=== PATIENT | male | born 1965 | race Caucasian/White ===

== ENCOUNTER 2016-06-10 15:27 | Observation (INO) | payer MEDICARE, OTHER ==
[~2016-06-10] VITALS: Ht 172.7 cm; Wt 85.4 kg
[2016-06-10] MEDS ORDERED: ONDANSETRON 2MG/ML, 2ML IVPush ONE (16:30)
[2016-06-10] MEDS ORDERED: SODIUM CHLORIDE FLUSH 10ML SYR IVF ONE (16:30)
[2016-06-10] MEDS ORDERED: SODIUM CHLORIDE 0.9% 1,000ML IVBOLUS ONE (16:30)
[2016-06-10 17:30] LABS: HEMOGLOBIN 16.7 g/dL (13.7-18.0)
[2016-06-10 17:39] LABS: ASPARTATE AMINO TRANSFERASE 14 U/L (15-37); BLOOD UREA NITROGEN 7 mg/dL (7-18)
[2016-06-10] MEDS ORDERED: ONDANSETRON 2MG/ML, 2ML ONE ×2 (17:53→20:26)
[2016-06-10] MEDS ORDERED: HYDROmorphone 1 MG/ML, 1ML ONE ×2 (17:53→19:14)
[2016-06-10] MEDS: HYDROmorphone 1 MG/ML, 1ML IVPush PRN ×2 (17:54→19:18)
[2016-06-10] MEDS ORDERED: OMNIPAQUE 350 MG/ML, 100ML BOTTLE ONE (18:28)
[2016-06-10] MEDS ORDERED: D5%-0.45% NACL 1,000 ML IV ONE (18:47)
[2016-06-10] MEDS ORDERED: HYDROmorphone 1 MG/ML, 1ML IVPush PRN (19:00)
[2016-06-10] MEDS ORDERED: MORPHINE SULFATE 4 MG/ML, 1ML IVPush PRN ×2 (19:00→21:30)
[2016-06-10] MEDS ORDERED: AMLO5TAB2 PO (19:21)
[2016-06-10] MEDS ORDERED: BUPIVACAINE/PF-EPI 0.5% 1:200K ONE (20:01)
[2016-06-10] MEDS ORDERED: FENTANYL PF 250 MCG/5ML ONE (20:06)
[2016-06-10] MEDS ORDERED: MIDAZOLAM 1 MG/ML, 2ML ONE (20:06)
[2016-06-10] MEDS ORDERED: ALBUTEROL SULFATE 200 PUFFS/8.5 GR INH ONE (20:26)
[2016-06-10] MEDS ORDERED: PROPOFOL 10 MG/ML, 20ML ONE (20:26)
[2016-06-10] MEDS ORDERED: KETOROLAC 30 MG/1 ML ONE (20:26)
[2016-06-10] MEDS ORDERED: DEXAMETHASONE 4 MG/ML, 5ML ONE (20:26)
[2016-06-10] MEDS ORDERED: ROCURONIUM 10 MG/ML ONE (20:26)
[2016-06-10] MEDS ORDERED: SUCCINYLCHOLINE 20 MG/ML, 10ML ONE (20:26)
[2016-06-10] MEDS ORDERED: BUPIVACAINE/PF-EPI 0.5% 1:200K IM ONE (20:51)
[2016-06-10] MEDS ORDERED: ONDANSETRON 2MG/ML, 2ML IVPush PRN ×2 (21:00→21:30)
[2016-06-10] MEDS ORDERED: ALBUTEROL/IPRATROPIUM 2.5MG/0.5MG, 3 ML NPPB PRN (21:00)
[2016-06-10] MEDS ORDERED: PROMETHAZINE 25 MG/ML, 1ML IV PRN (21:00)
[2016-06-10] MEDS ORDERED: OXYcodone 5 MG/5 ML ORAL.SOL UDC PO PRN (21:00)
[2016-06-10] MEDS ORDERED: MEPERIDINE/PF 25MG/0.5ML IVPush PRN (21:00)
[2016-06-10] MEDS ORDERED: ACETAMINOPHEN 325 MG TABLET PO PRN (21:00)
[2016-06-10] MEDS ORDERED: POTASSIUM CHLORIDE 20 MEQ in D5%-0.45% NACL 1,000 ML IV SCH (21:14)
[2016-06-10] MEDS ORDERED: ACETAMINOPHEN 325 MG TABLET ONE (21:25)
[2016-06-10] MEDS ORDERED: ACETAMINOPHEN 650 MG/20.3 ML UDC ONE (21:25)
[2016-06-10] MEDS ORDERED: HYDROmorphone 2 MG/ML, 1ML ONE (21:25)
[2016-06-10] MEDS ORDERED: OXYcodone 5 MG/5 ML ORAL.SOL UDC ONE (21:26)
[2016-06-10] MEDS: HYDROmorphone 1 MG/ML, 1ML IV PRN ×4 (21:28→21:54)
[2016-06-10] MEDS ORDERED: KETOROLAC 30 MG/1 ML IV PRN (21:30)
[2016-06-10] MEDS ORDERED: hydrALAzine 20 MG/ML, 1ML IV PRN (21:30)
[2016-06-10] MEDS ORDERED: DIPHENHYDRAMINE 25 MG CAPSULE PO PRN (21:30)
[2016-06-10] MEDS ORDERED: FENTANYL PF 100 MCG/2ML ONE (21:49)
[2016-06-10] MEDS: FENTANYL PF 100 MCG/2ML IV PRN ×2 (21:50→22:00)
[2016-06-10 22:46] VITALS: BP 124/65
[2016-06-10] MEDS ORDERED: PNEUMOCOCCAL 23 VACCINE IM-VACC ONE (23:00)
[2016-06-11] MEDS ORDERED: NICOTINE 21 MG/24 HR PATCH.TD24 TD SCH (00:30)
[2016-06-11 07:42] VITALS: BP 119/73
[2016-06-11] MEDS ORDERED: HYDR-882 PO (08:55)
[2016-06-11] MEDS ORDERED: ONDA4TAB7 PO (08:57)
[2016-06-11] MEDS ORDERED: ENOXAPARIN 40 MG/0.4 ML SQ SCH (09:00)
== END 2016-06-11 09:32 | disposition home or self-care (01) ==
LOC: ED 18:40 → EDIP 18:41 → INTOOBSV 18:41 → ED 18:54 → 4NOR 22:29 → DCLOUNGE 06-11 09:13
PROVIDERS: ADMIT Surgery; ATTEND Surgery
DX: K43.0 Incisional hernia with obstruction, without gangrene (principal); I10 Essential (primary) hypertension; F17.210 Nicotine dependence, cigarettes, uncomplicated; Z87.19 Personal history of other diseases of the digestive system; Z23 Encounter for immunization
CPT/HCPCS: 36415; 49561; 74022; 74177; 80053; 83690; 85025; 90471; 90732; 96372; 96374; 96375; 96376; 99285; G0009; G0378; J0330; J1100; J1170; J1650; J1885; J2250; J2405; J2704; J3010; J7030; Q9967

== ENCOUNTER 2017-01-19 12:45 | Emergency (ER) | payer OTHER ==
[~2017-01-19] VITALS: Ht 175.3 cm; Wt 88.6 kg
[~2017-01-19 12:45] MED LIST: AMLO5TAB2 PO; HYDR-882 PO; ONDA4TAB7 PO
[2017-01-19 12:51] VITALS: BP 166/109
[2017-01-19] MEDS ORDERED: HYDROcodone/APAP 5/325 TABLET PO ONE (14:00)
[2017-01-19] MEDS ORDERED: HYDROcodone/APAP 5/325 TABLET ONE (14:18)
== END 2017-01-19 14:26 | disposition home or self-care (01) ==
LOC: ED 14:00
DX: M25.511 Pain in right shoulder (principal); I10 Essential (primary) hypertension; F17.210 Nicotine dependence, cigarettes, uncomplicated
CPT/HCPCS: 99284

== ENCOUNTER → 2020-07-08 | Outpatient (CLI) | payer OTHER ==
[~2020-07-08] MED LIST changes: +AMLO-150 PO; -AMLO5TAB2 PO; +HYDR-3653 PO; -HYDR-882 PO
== END | disposition home or self-care (01) ==
LOC: RAD 17:29
PROVIDERS: ATTEND Family Medicine
DX: K80.20 Calculus of gallbladder without cholecystitis without obstruction (principal); N20.0 Calculus of kidney; K57.90 Diverticulosis of intestine, part unspecified, without perforation or abscess without bleeding
CPT/HCPCS: 74176